=== PATIENT | male | born 1955 | race Caucasian/White ===

== ENCOUNTER 2023-11-13 16:21 | Emergency (ER) | payer SELFPAY ==
[2023-11-13 16:30] VITALS: BP 193/72; PULSE 58; RESP 20; TEMP 36.7; O2SAT 98; BMI 32.3
[2023-11-13 16:35] VITALS: BP 190/90
--- NOTE | 2023-11-13 16:48 | EXP.UTC ---
Discharge Plan Disposition Patient Disposition: Home, Self-Care Condition: Good Prescriptions Prescriptions: New losartan 50 mg tablet 50 mg PO DAILY Qty: 30 0RF Referrals Follow up/Referrals: Provider,Referral, MD [Primary Care Provider] - See instructions Activity Restrictions/Add. Instructions Additional Instructions/Restrictions: Take medication as prescribed. Take blood pressure three times a week and keep record for your Primary care provider. If you have dizziness, chest pain, jaw pain, or left arm pain, go directly to the ER. Make an appointment to establish primary care. Clinical Impressions Clinical Impression: Essential (primary) hypertension Instructions Patient Instructions: Treatments for High Blood Pressure: More Than Just Taking a Pill, Essential Hypertension Print Language Print Language: Indonesian Discharge ED Provider: Nikki Vincent [facility] General Stated complaint: wants BP check , has been dizzy ,[facility] Mode of Arrival: Ambulatory Source of Information: Patient Limitations: No Limitations Time Seen by Provider: 11/13/23 16:40 Description of Symptoms (Recalled from Triage Doc. by RN): PATIENT STATES HE WAS WORKING OUTSIDE YESTERDAY AND BECAME DIZZY WHEN HE TURNED TOO QUICK. HE ALSO STATES HE HAD A HEADACHE YESTERDAY. PATIENT STATES HE HAS BEEN TOLD IN THE PAST THAT HE HAD HIGH BLOOD PRESSURE, BUT DOES NOT TAKE MEDICATIONS AND DOES NOT HAVE A PCP. PATIENT STATES HE IS CURRENTLY NOT HAVING DIZZINESS OR A HEADACHE, BUT IS WORRIED THAT HIS BLOOD PRESSURE MAY BE HIGH HEENT Symptoms (Recalled from RN notes): No Resp Symptoms (Recalled from RN notes): No Skin Symptoms (Recalled from RN notes): No MS Symptoms (Recalled from RN notes): No Functional Status (Recalled from RN notes): WNL History of Present Illness Provider Complaint: PATIENT STATES HE WAS WORKING OUTSIDE YESTERDAY AND BECAME DIZZY WHEN HE TURNED TOO QUICK. HE ALSO STATES HE HAD A HEADACHE YESTERDAY. PATIENT STATES HE HAS BEEN TOLD IN THE PAST THAT HE HAD HIGH BLOOD PRESSURE, BUT DOES NOT TAKE MEDICATIONS AND DOES NOT HAVE A PCP. PATIENT STATES HE IS CURRENTLY NOT HAVING DIZZINESS OR A HEADACHE, BUT IS WORRIED THAT HIS BLOOD PRESSURE MAY BE HIGH Related Data Previous Rx's Medication Instructions Recorded losartan 50 mg tablet 50 mg PO DAILY #30 tabs 11/13/23 Allergies Allergy/AdvReac Type Severity Reaction Status Date / Time No Known Allergies Allergy Verified 11/13/23 16:48 Worker's Comp Is this a Worker's Comp case?: No PFSH PFSH Disclaimer: The information contained in this section may have been updated after the patient was seen, as this information can be updated by other users. Social History Smoking Status: Smoker, status unknown alcohol intake: current current occupational status: employed Travel in the last 8 weeks: Inside the [place] ROS Obtained: Yes All systems reviewed & no additional complaints except as documented Constitutional Constitutional: Reports system reviewed and no additional complaints, except as documented Eyes Eyes: Reports system reviewed and no additional complaints, except as documented ENT Ears, Nose, Mouth, and Throat: Reports system reviewed and no additional complaints, except as documented and Reports vertigo Comments: yesterday he was experiencing dizziness. Cardiovascular Cardiovascular: Reports system reviewed and no additional complaints, except as documented and Reports lightheadedness Respiratory Respiratory: Reports system reviewed and no additional complaints, except as documented Gastrointestinal Gastrointestingal: Reports system reviewed and no additional complaints, except as documented Genitourinary Male Genitourinary: Reports system reviewed and no additional complaints, except as documented Musculoskeletal Musculoskeletal: Reports system reviewed and no additional complaints, except as documented Integumentary/Breasts Skin/Breast: Reports system reviewed and no additional complaints, except as documented Neurologic Neurologic: Reports system reviewed and no additional complaints, except as documented and Reports vertigo Endocrine Endocrine: Reports system reviewed and no additional complaints, except as documented Hematologic/Lymphatic Henatologic/Lymphatic: Reports system reviewed and no additional complaints, except as documented Allergic/Immunologic Allergic/Immunologic: Reports system reviewed and no additional complaints, except as documented Physical Exam General General appearance: alert and in no apparent distress Head Head exam: atraumatic and normocephalic Eye Eye exam: Present normal appearance ENT ENT exam: Present normal exam and normal oropharynx Neck Neck exam: Present normal inspection and full ROM Chest Chest inspection: Present normal inspection and symmetric chest wall rise Respiratory Respiratory exam: Present normal lung sounds bilaterally Cardiovascular Cardiovascular exam: Present regular rate, normal rhythm and normal heart sounds Abdominal Exam Abdominal exam: Present soft and normal bowel sounds Extremities Exam Extremities exam: Present normal inspection Back Exam Back exam: Present normal inspection Neurological Exam Neurological exam: Present alert and oriented X3 Psychiatric Psychiatric exam: Present normal affect and normal mood Skin Skin exam: Present warm, dry and intact Lymphatic Lymphatic Findings: no adenopathy Medical Decision Making Mitch Inquiry Pt receiving controlled substance: No Vital Signs: 11/13/23 16:30 11/13/23 16:35 Temperature 98.0 F Temperature Source Oral Pulse Rate [Left Brachial] 58 L Respiratory Rate 20 Blood Pressure [Left Arm] 193/72 H 190/90 H Blood Pressure Mean [Left Arm] 112 123 Blood Pressure Source [Left Arm] Automatic Cuff Manual Cuff/ Auscultation Blood Pressure Position [Left Arm] Sitting Sitting 02 Sat by Pulse Oximetry 98 Oxygen Delivery Method Room Air
[2023-11-13 16:53] VITALS: BP 190/90; PULSE 58; RESP 20; TEMP 36.7; O2SAT 98
== END 2023-11-13 16:58 | disposition home or self-care (01) ==
PROVIDERS: Emergency Provider Nurse Practitioner Family
DX: R42 Dizziness and giddiness (principal); I10 Essential (primary) hypertension
CPT/HCPCS: 99204; 99212; G0463